=== PATIENT | male | born 1980 | race African-American/Black ===

== ENCOUNTER 2018-11-18 15:46 | Emergency (ER) | payer SELFPAY | END 2018-11-18 16:13 | disposition home or self-care (01) | LOC: ERS 15:46 | DX: R51 Headache (principal) | CPT/HCPCS: 99283 ==

== ENCOUNTER 2019-01-19 13:28 | Emergency (ER) | payer SELFPAY | END 2019-01-19 15:30 | disposition home or self-care (01) | LOC: ERS 13:28 | DX: R19.7 Diarrhea, unspecified (principal) | CPT/HCPCS: 99283 ==

== ENCOUNTER 2020-02-12 17:07 | Emergency (ER) | payer SELFPAY | END 2020-02-12 17:28 | disposition home or self-care (01) | LOC: ERS 17:07 | DX: S60.812A Abrasion of left wrist, initial encounter (principal); W25.XXXA Contact with sharp glass, initial encounter; Y99.0 Civilian activity done for income or pay | CPT/HCPCS: 99281 ==

== ENCOUNTER 2020-04-12 02:00 | Emergency (ER) | payer SELFPAY | END 2020-04-12 02:41 | disposition home or self-care (01) | LOC: ERS 02:00 | DX: M54.5 Low back pain (principal); X50.0XXA Overexertion from strenuous movement or load, initial encounter | CPT/HCPCS: 99283 ==

== ENCOUNTER 2021-12-06 04:23 | Emergency (ER) | payer SELFPAY ==
[2021-12-06 04:46] LABS: Bilirubin Negative (Negative); Blood, Urine Trace (Negative); Clarity Clear (Clear); Glucose, Urine (Dipstick) Normal (Negative); Ketone, Urine Negative (Negative); Leukocyte 250 Leu/uL (Negative); Nitrite Negative (Negative); Protein, Urine (Dipstick) Negative (Neg-Trace); RBC/HPF 0-3 HPF (0-3); Specific Gravity, Urine 1.029 (1.002-1.036); Squamous Epithelial 0-3 HPF (0-3); Urobilinogen Normal mg/dL (Less than 2); pH, Urine 6.5 (5.0-9.0)
[2021-12-06 04:59] LABS: Bacteria/HPF None Seen HPF (None Seen)
[2021-12-06] MEDS ORDERED: cefTRIAXone\\ROCEPHIN 500 MG VIAL ONE (05:35)
[2021-12-06] MEDS ORDERED: Xylocaine 1% w/ Epi 1:100K 10 ML VIAL ONE (05:36)
[2021-12-06] MEDS ORDERED: Sterile Water 10 ML ONE (05:36)
== END 2021-12-06 05:43 | disposition home or self-care (01) ==
LOC: ERS 04:23
DX: N34.2 Other urethritis (principal)
CPT/HCPCS: 81003; 81015; 87086; 99283; J0696

== ENCOUNTER 2022-11-17 14:08 | Emergency (ER) | payer BC ==
[2022-11-17] MEDS ORDERED: Boostrix 0.5 ML (Tdap) VIAL (>/=7 yrs of age) ONE (14:34)
[2022-11-17] MEDS ORDERED: Proparacaine 0.5% Opth 15 ML BOT ONE (14:34)
[2022-11-17] MEDS ORDERED: Fluorescein Opthalmic Strip ONE (14:34)
[2022-11-17] MEDS ORDERED: Ibuprofen 200 MG TAB ONE (14:49)
== END 2022-11-17 15:27 | disposition home or self-care (01) ==
LOC: ERS 14:08
DX: S05.02XA Injury of conjunctiva and corneal abrasion without foreign body, left eye, initial encounter (principal); W26.8XXA Contact with other sharp object(s), not elsewhere classified, initial encounter
CPT/HCPCS: 90715; 99283

== ENCOUNTER 2023-02-11 15:05 | Emergency (ER) | payer BC ==
[2023-02-11 15:44] LABS: #Eosinphils 0.1 thou/uL (0.0-0.7); #Lymphocytes 0.9 thou/uL (1.20-3.40); #Monocytes 0.3 thou/uL (0.11-0.59); %Eosinophils 0.7 % (0.0-10.0); %Monocytes 3.4 % (0.0-10.0); %Neutrophils 85.9 % (42.0-75.0); Hemoglobin 15.7 g/dL (14.0-18.0); Mean Corpuscular HGB CONC 34.3 g/dL (32.0-36.0); Mean Corpuscular Hemoglobin 30.5 pg (27.0-31.0); Mean Corpuscular Volume 88.8 fl (78.0-98.0); Mean Platelet Volume 7.6 fL (7.4-10.4); Platelet Count 191 10x3/uL (130-400); RBC Distribution Width 11.9 % (11.5-14.5); Red Blood Cell (RBC) Count 5.16 mill/uL (4.70-6.10); White Blood Cell (WBC) Count 9.3 10x3/uL (4.8-10.8)
[2023-02-11 16:06] LABS: ALT (SGPT) 24 U/L (8-55); AST (SGOT) 22 U/L (5-34); Alkaline Phosphatase 63 U/L (40-110); Anion Gap 13 mmol/L (10-20); BUN (Urea Nitrogen) 17 mg/dL (8.9-20.6); Bilirubin, Total 1.2 mg/dL (0.2-1.2); Calc. Creatinine Clearance 0 mL/min (70-130); Calcium 10.2 mg/dL (7.8-10.44); Carbon Dioxide 25 mmol/L (22-29); Chloride 104 mmol/L (98-107); Estimated GFR 92; Globulin 3.9 g/dL (2.4-3.5); Glucose 106 mg/dL (70-105); Lipase 18 U/L (8-78); Potassium 4.4 mmol/L (3.5-5.1); Protein, Total 8.9 g/dL (6.0-8.3); Sodium 138 mmol/L (136-145)
[2023-02-11] MEDS ORDERED: Ondansetron ODT 4 MG TAB ONE (17:11)
[2023-02-11 18:54] LABS: Bacteria/HPF None Seen HPF (None Seen); Bilirubin Negative (Negative); Blood, Urine Negative (Negative); Clarity Clear (Clear); Glucose, Urine (Dipstick) Normal (Negative); Ketone, Urine Negative (Negative); Leukocyte 75 Leu/uL (Negative); Mucous/LPF Rare LPF (<2+); Nitrite Negative (Negative); Protein, Urine (Dipstick) 50 mg/dL (Neg-Trace); RBC/HPF 0-3 HPF (0-3); Specific Gravity, Urine 1.031 (1.002-1.036); Sperm/HPF Rare HPF (None Seen); Urobilinogen Normal mg/dL (Less than 2); pH, Urine 5.5 (5.0-9.0)
[2023-02-11] MEDS ORDERED: cefTRIAXone (ROCEPHIN) 1 GM VIAL ONE (19:27)
[2023-02-11] MEDS ORDERED: Lidocaine 1% PF 5 ML VIAL ONE (19:29)
[2023-02-12 00:55] LABS: Chlam.trachomatis by PCR,Urine Not Detected (NotDetected); GC N.gonorrhoeae PCR,UrineVOID Not Detected (NotDetected)
== END 2023-02-11 19:33 | disposition home or self-care (01) ==
LOC: ERS 15:05
DX: R11.10 Vomiting, unspecified (principal); R19.7 Diarrhea, unspecified; N39.0 Urinary tract infection, site not specified
CPT/HCPCS: 36415; 80053; 81003; 81015; 83605; 83690; 85025; 87086; 87491; 87591; 93005; 96360; 96372; J0696; Q0162